=== PATIENT | female | born 1970 | race Hispanic/Latino ===

== ENCOUNTER → 2018-01-05 | Day surgery (SDC) | payer BC ==
[~2018-01-05] MED LIST: ALLEGRA ALLERGY60 MG PO; CLARITIN10 M3 PO; FENTANYL CITRATE/PF 100MCG/2 ML INJ ONE; HAIR VITAMIN1 EACH PO; HYOSCYAMINE SULFATE 0.5 MG/ML INJ ONE; LANSOPRAZOLE; MACRODANTIN; MIDAZOLAM HCL 2 MG/2 ML VIAL ONE; OMEPRAZOLE40 MG PO; PRILOSEC; PROPOFOL IV EMULSION 10 MG/ML 50 ML VIAL ONE; SIMETHICONE 40 MG/0.6 ML BTL ONE; TOPIRAMATE50 MG PO; Z.1.VITAMIN D2000 UN PO
[2018-01-05 11:36] LABS: WBC,FECAL (FECAL LACTOFERRIN) NEGATIVE (NEGATIVE)
[2018-01-05 14:18] LABS: C DIFFICILE TOXIN A&B AMP PROB NEGATIVE (NEGATIVE)
--- NOTE | 2018-01-05 14:19 | Operative Report ---
DATE OF PROCEDURE: January 05, 2018 REFERRING PHYSICIAN: Dr. Cindy Watson. PROCEDURE PERFORMED: Colonoscopy with biopsies. INDICATIONS FOR COLONOSCOPY: Surveillance colonoscopy, history of colon polyps, lower abdominal pain, intermittent diarrhea. MEDICATION: Patient was done under MAC. Please see anesthesiologist's note. PROCEDURE: With the patient in left lateral decubitus position, a flexible fiberoptic Olympus colonoscope was inserted into the rectum with ease and advanced all the way to the cecum. Mucosa overlying the cecum appeared to be within normal limits. The ileocecal valve was intubated, and the scope was advanced into the terminal ileum. Biopsies were obtained. The scope was then withdrawn back into the colon. It was then withdrawn slowly and mild patchy inflammatory changes were noted throughout the colon. Multiple random biopsies were obtained. Similar findings also were noted in the rectum and biopsies were obtained. The scope was then retroflexed into the distal rectum and hypertrophied anal papillae were noted. The scope was then straightened out and was subsequently withdrawn after securing an adequate stool specimen that was sent for the appropriate stool studies. Patient tolerated the procedure well. IMPRESSION 1. Mild patchy colitis. 2. Proctitis, mild. 3. Hypertrophied anal papillae. PLAN: Follow up histology. Follow up stool studies. Start VSL#3 one p.o. daily and Bentyl 10 mg 1 p.o. t.i.d. Job#: [id number] LPA cc:CINDY WATSON MD
--- OUTSIDE RECORDS SUMMARY | 2018-01-07 10:46 | XMS REPORT | Clinical Summary ---
Author Author [facility] Address Unknown Phone Unavailable Care Team Providers Care Quality Assurance Engineer Name Role Phone Asked, No Pcp PCP Unavailable Allergies Comments Active Allergy Reactions Severity Noted Date COUGHING, SNEEZING Iodine And Iodide Other (See 05/09/2017 Containing Products Comments) Medications End Date Status Medication Sig Dispensed Refills Start Date Active ergocalciferol (VITAMIN Take 50,000 0 D2) 50,000 unit capsule Units by mouth. Active lansoprazole (PREVACID) Take 30 mg by 0 30 MG capsule mouth. Active meloxicam (MOBIC) 7.5 mg 0 tablet 8 Active ranitidine (ZANTAC) 150 0 03/01/201 MG tablet 8 Active olopatadine (PAZEO) 0.7 % Apply 1 drop 2.5 mL 3 drops to eye daily. 8 06/18/2017 Discontinued tobramycin-dexamethasone 1 gtt ou qid 2.5 mL 0 (TOBRADEX) 0.3-0.1 % 1 week, bid 1 8 ophthalmic solution week then stop 06/18/2017 Discontinued olopatadine (PAZEO) 0.7 % Apply 1 drop 2.5 mL 3 drops to eye daily. 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 Last Filed Vital Signs Not on file Plan of Treatment Health Maintenance Due Date Last Done Comments CERVICAL CANCER SCREENING 05/23/1991 INFLUENZA VACCINE 09/05/2017 HEPATITIS B VACCINES Aged Out No longer eligible based on patient's age to complete this topic IPV VACCINES Aged Out No longer eligible based on patient's age to complete this topic MENINGOCOCCAL VACCINE Aged Out No longer eligible based on patient's age to complete this topic Results Not on fileafter 01/06/2017 Insurance Payer Benefit Subscriber ID Type Phone Address Plan / Group BCBS BCBS xxxxxxxxxxxx PPO CHOICE PPO/L[place]IS REGALADO PPO Advance Directives Patient has advance care planning documents on file. For more information, kendell zhao contact: Chago Botello [address] [place] [address]
--- OUTSIDE RECORDS SUMMARY | 2018-01-07 10:46 | XMS REPORT | Clinical Summary ---
Author Author [facility] Address Unknown Phone Unavailable Care Team Providers Care Security Attendant Name Role Phone Cindy Newman PCP Allergies Comments Active Allergy Reactions Severity Noted Date COUGHING, SNEEZING Iodine And Iodide Other (See 05/09/2017 Containing Products Comments) Medications End Date Status Medication Sig Dispensed Refills Start Date Active lansoprazole (PREVACID) Take 30 mg by 0 30 MG capsule mouth daily. Active ergocalciferol (VITAMIN Take 50,000 0 D2) 50,000 unit capsule Units by mouth once a week. Active Problems Not on file Encounters Care Team Description Date Type Specialty Haris Pederson MD MOTILITY 05/09/2017 Surgery Gastroenterology Haris Pederson MD 05/09/2017 Hospital Gastroenterology Encounter after 01/06/2017 Social History Date Tobacco Use Types Packs/Day Years Used Never Assessed Sex Assigned at Date Recorded Not on file Industry Job Start Date Occupation Not on file Not on file Not on file Travel End Travel History Travel Start No recent travel history available. Last Filed Vital Signs Time Taken Vital Sign Reading 05/09/2017 2:11 PM CDT Blood Pressure 118/61 05/09/2017 2:11 PM CDT Pulse 77 05/09/2017 2:11 PM CDT Temperature 36.3 C (97.3 F) 05/09/2017 2:11 PM CDT Respiratory Rate 18 05/09/2017 2:11 PM CDT Oxygen Saturation 100% - Inhaled Oxygen - Concentration 05/09/2017 2:11 PM CDT Weight 69.9 kg (154 lb) 05/09/2017 2:11 PM CDT Height 167.6 cm (5' 6") 05/09/2017 2:11 PM CDT Body Mass Index 24.86 Plan of Treatment Not on file Procedures Comments Procedure Name Priority Date/Time Associated Diagnosis MOTILITY 05/09/2017 Dyspepsia 2:00 PM CDT Dysphagia, unspecified type Chest pain, unspecified type Heartburn Gastroesophageal reflux disease, esophagitis presence not specified Special Needs (PATIENT TO DISCONTINU E ACID SUPPRESION , DR. PONCE TO READ) after 01/06/2017 Results Not on fileafter 01/06/2017 Insurance Payer Benefit Subscriber ID Type Phone Address Plan / Group BLUE CROSS/BLUE SHIELD BCBS OS xxxxxxxxxxxx PPO [phone] [address] POS/PPO/EP [place] [id number] O
== END | disposition home or self-care (01) ==
LOC: OR 07:31
PROVIDERS: ATTEND Internal Medicine Gastroenterology
DX: K52.9 Noninfective gastroenteritis and colitis, unspecified (principal); K62.89 Other specified diseases of anus and rectum; K21.9 Gastro-esophageal reflux disease without esophagitis; K25.9 Gastric ulcer, unspecified as acute or chronic, without hemorrhage or perforation; Z91.041 Radiographic dye allergy status
CPT/HCPCS: 45380; 81025; 83630; 83993; 87045; 87177; 87328; 87493; J1980; J2250; 45378

== ENCOUNTER → 2018-09-20 | Outpatient (CLI) | payer BC ==
[~2018-09-20] MED LIST changes: +DEXILANT60 MG PO; +EXCEDRIN TENSION; -FENTANYL CITRATE/PF 100MCG/2 ML INJ ONE; -HYOSCYAMINE SULFATE 0.5 MG/ML INJ ONE; -MIDAZOLAM HCL 2 MG/2 ML VIAL ONE; -PROPOFOL IV EMULSION 10 MG/ML 50 ML VIAL ONE; -SIMETHICONE 40 MG/0.6 ML BTL ONE; +zantac PO
--- NOTE | 2018-09-20 16:38 | Diagnostic Imaging Report ---
Hepatobiliary Scan with Gallbladder Ejection Fraction Clinical information: Chronic upper abdominal pain Technique: Following intravenous administration of 6.6 millicuries of Tc-99m mebrofenin, dynamic images of the abdomen in the anterior projection were obtained through 60 minutes. Sincalide (CCK analog) 1.5 micrograms was administered intravenously over 30 minutes with additional imaging for determination of gallbladder ejection fraction. Discussion: Perfusion of the liver is normal. Extraction of tracer by the liver parenchyma is normal. Tracer appears promptly within the biliary tract. The gallbladder begins to fill by 9 minutes post injection of tracer and fills adequately. Tracer is seen in the small bowel by 16 minutes. The gallbladder ejection fraction with sincalide is 29% (normal greater than 40%). Impression: 1. Filling of the gallbladder excludes acute cystic duct obstruction/acute cholecystitis. 2. The decreased gallbladder ejection fraction of 29% supports the clinical diagnosis of chronic cholecystitis/gallbladder dyskinesia. Signed by: Dr. Alecia Farah M.D. on 09/20/2018 4:34 PM
== END ==
LOC: NM 07:44
PROVIDERS: ATTEND Internal Medicine Gastroenterology
DX: R10.10 Upper abdominal pain, unspecified (principal)
CPT/HCPCS: 78227; 81025; A9537

== ENCOUNTER → 2018-10-15 | Day surgery (SDC) | payer BC ==
[~2018-10-15] MED LIST changes: +DONNATAL/LIDOCAINE/MAALOX 30 ML SUSP PO ONE; +FENTANYL CITRATE/PF 100MCG/2 ML INJ ONE; +MIDAZOLAM HCL 2 MG/2 ML VIAL ONE; +ONDANSETRON HCL INJ 2MG/ML 2ML 2 MG/ML VIAL ONE; +PROPOFOL IV EMULSION 10 MG/ML 50 ML VIAL ONE
--- OUTSIDE RECORDS SUMMARY | 2018-10-15 13:26 | XMS REPORT | Clinical Summary ---
Author Author [facility] Address Unknown Phone Unavailable Care Team Providers Care General Farm Manager Name Role Phone Cindy Newman PCP Allergies [...] a week. Active Problems Not on file Social History Date Tobacco Use Types Packs/Day Years Used Never Assessed Sex Assigned at Date Recorded Not on file Industry Job Start Date Occupation Not on file Not on file Not on file Travel End Travel History Travel Start No recent travel history available. Last Filed Vital Signs Not on file Plan of Treatment Not on file Results Not on fileafter 10/14/2017 Insurance Payer Benefit Subscriber ID Type Phone Address Plan / Group BLUE CROSS/BLUE SHIELD BCBS OS xxxxxxxxxxxx PPO [phone] [address] POS/PPO/[place] [address] O
--- OUTSIDE RECORDS SUMMARY | 2018-10-15 13:26 | XMS REPORT ---
Author Author [facility] Address Unknown Phone Unavailable Care Team Providers Care Cancer Program Consultant Name Role Phone MIGUEL MORTON Unavailable Unavailable Problems This patient has no known problems. Allergies, Adverse Reactions, Alerts This patient has no known allergies or adverse reactions. Medications This patient has no known medications. Results Test Description Test Time Test Comments Text Results Atomic Results Result Comments HEPTOBILIARY W PHARM 2018-09-20 16:33:00 [place] [address] Patient Name: DENNIS SMITH MR #: [id number] : 1970 Age/Sex: 48/F Req #: [id number] Adm Physician: Ordered by: MIGUEL MORTON MD Report #: [id number] Location: [place] Room/Bed: Procedure: [id number] NM/HEPTOBILIARY W PHARM Exam Date: 09/20/18 Exam Time: 0910 REPORT STATUS: Signed Hepatobiliary Scan with Gallbladder Ejection Fraction Clinical information: Chronic upper abdominal pain Technique: Following intravenous administration of 6.6 millicuries of Tc-99m mebrofenin, dynamic images of the abdomen in the anterior projection were obtained through 60 minutes. Sincalide (CCK analog) 1.5 micrograms was administered intravenously over 30 minutes with additional imaging for determination of gallbladder ejection fraction. Discussion: Perfusion of the liver is normal. Extraction of tracer by the liver parenchyma is normal. Tracer appears promptly within the biliary tract. The gallbladder begins to fill by 9 minutes post injection of tracer and fills adequately. Tracer is seen in the small bowel by 16 minutes. The gallbladder ejection fraction with sincalide is 29% (normal greater than 40%). Impression: 1. Filling of the gallbladder excludes acute cystic duct obstruction/acute cholecystitis. 2. The decreased gallbladder ejection fraction of 29% supports the clinical diag nosis of chronic cholecystitis/gallbladder dyskinesia. Signed by: Dr. Debbie Ivy M.D. on 09/20/2018 4:34 PM Dictated By: DEBBIE IVY MD [id number] Transcribed By: DILLAN on 09/20/18 [id number] COPY TO: MIGUEL MORTON MD
--- OUTSIDE RECORDS SUMMARY | 2018-10-15 13:26 | XMS REPORT | Clinical Summary ---
Author Author [facility] Organization [facility] Address Unknown Phone Unavailable Care Team Providers Care Supervisor Laundry Name Role Phone Asked, No Pcp PCP [...] mL 3 drops to eye daily. 8 05/23/2018 Discontinued (Reorder) cycloSPORINE (RESTASIS) Administer 1 180 each 0 0.05 % ophthalmic drop to both 9 emulsion eyes 2 (two) times a day for 90 days. 07/05/2018 Discontinued (Reorder) lifitegrast (XIIDRA) 5 % Apply 1 drop 60 each 3 dropperette to eye 2 9 (two) times a day for 90 days. 07/05/2018 Discontinued (Alternate therapy) cycloSPORINE (RESTASIS) Administer 1 180 each 3 0.05 % ophthalmic drop to both 9 emulsion eyes 2 (two) times a day for 90 days. 10/03/2018 lifitegrast (XIIDRA) 5 % Apply 1 drop 60 each 3 dropperette to eye 2 9 (two) times a day for 90 days. Status Hospital, Clinic, or Ordered Dose Route Frequency Start End Date Other Facility Date Administered Medication Ended onabotulinumtoxinA 40 Units inj once 08/29/19 (BOTOX) injection 40 19 9 UnitsIndications: Benign essential blepharospasm Ended onabotulinumtoxinA 10 Units inj once 09/03/19 (BOTOX) injection 10 19 9 UnitsIndications: Benign essential blepharospasm Active Problems Not on file Encounters Care Team Description Date Type Specialty Aminta Samayoa MD Benign essential blepharospasm (Primary Dx) 09/02/2018 Office Visit Ophthalmology Aminta Samayoa MD Benign essential blepharospasm (Primary Dx); Dry eye syndrome, bilateral; 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 08/28/2018 Office Visit Ophthalmology Aminta Samayoa MD 08/28/2018 Telephone Ophthalmology Aminta Samayoa MD 08/28/2018 Telephone Ophthalmology Aminta Samayoa MD 08/27/2018 Telephone Ophthalmology Aminta Samayoa MD 08/13/2018 Telephone Ophthalmology Aminta Samayoa MD Dry eye syndrome, bilateral (Primary Dx) 07/05/2018 Office Visit Ophthalmology Aminta Samayoa MD 07/05/2018 Refill Ophthalmology Aminta Samayoa MD 06/28/2018 Telephone Ophthalmology Aminta Samayoa MD 2018 Telephone Ophthalmology Aminta Samayoa MD 05/15/2018 Refill Ophthalmology Aminta Samayoa MD Benign essential blepharospasm (Primary Dx); Epiphora, bilateral; Dry eye syndrome, bilateral 05/10/2018 Office Visit Ophthalmology after 10/14/2017 Social History Date Tobacco Use Types Packs/Day Years Used Never Smoker Smokeless Tobacco: Never Used Drinks/Week oz/Week Comments Alcohol Use No Sex Assigned at Date Recorded Not on file Industry Job Start Date Occupation Not on file Not on file Not on file Travel End Travel History Travel Start No recent travel history available. Last Filed Vital Signs Not on file Plan of Treatment Health Maintenance Due Date Last Done Comments CERVICAL CANCER SCREENING 05/23/1991 INFLUENZA VACCINE 09/05/2018 Results Not on fileafter 10/14/2017 Insurance Type Payer Benefit Subscriber ID Effective Phone Address Plan / Dates Group PPO BCBS BCBS xxxxxxxxxxxx 2015-P JOSELINE negrete PPO/LOUIS SCHMIDT Advance Directives For more information, please contact: [phone] Patient Senior Devops Engineer Explanation Type Date Recorded Advance Directives, Living Will and Medical Power of Sheet Rock Taper
[2018-10-15 15:10] VITALS: BP 117/65
--- NOTE | 2018-10-15 17:01 | Operative Report ---
DATE OF PROCEDURE: 10/15/2018 SURGEON: Chavez Roy MD PROCEDURES: EGD with esophageal dilatation and biopsies. INDICATIONS FOR PROCEDURE: Dysphagia, upper abdominal pain. MEDICATIONS: The patient was done under MAC, please see anesthesiologist's note. PROCEDURE IN DETAIL: With the patient in left lateral decubitus position, a flexible fiberoptic Olympus gastroscope was introduced into the esophagus under direct visualization without any difficulty. There was some patchy erythema noted in distal esophagus. Mild stricture was noted at the GE junction that was dilated to size 54-[place] Flowers. The scope was then advanced with ease into the stomach. Mucosa overlying the antrum and the body revealed some patchy intense erythema and low-grade to moderate edema, and biopsies were obtained and sent to stain for H. pylori. Numerous gastric polyps were noted. They were hyperplastic-appearing, primarily in the body and minimally in the fundus, approximately 20 were removed per cold snare polypectomy. The pylorus was of normal contour and shape, it was intubated with ease and the scope was advanced all the way to the second portion of the duodenum. The scope was then withdrawn slowly. Mucosa overlying the proximal, second portion and duodenal bulb grossly was unremarkable. Biopsies were obtained to rule out sprue. The scope was then withdrawn back into the stomach and retroflexed, mucosa overlying the fundus and the cardia appeared to be within normal limits. The scope was then straightened out, it was subsequently withdrawn, and the patient tolerated the procedure well. IMPRESSION: 1. Distal esophagitis. 2. Esophageal stricture at GE junction dilated to size 54-Cro[place] Flowers. 3. Gastritis, biopsied, biopsies sent to stain for Helicobacter pylori. 4. Gastric polyps, numerous, hyperplastic-appearing, approximately 20 removed per cold snare polypectomy. 5. Rule out sprue. PLAN: Follow up histology. Increase Dexilant 60 mg one p.o. before meals b.i.d. If the patient's symptom persists, then considering her low ejection fraction on her HIDA scan, we will send her for a surgical opinion. Chavez Roy MD [facility] [place][id number] cc: Cindy Newman
== END | disposition home or self-care (01) ==
LOC: OR 13:24
PROVIDERS: ATTEND Internal Medicine Gastroenterology
DX: K29.60 Other gastritis without bleeding (principal); K31.7 Polyp of stomach and duodenum; K22.2 Esophageal obstruction; K20.8 Other esophagitis; K59.00 Constipation, unspecified; Z86.010 Personal history of colon polyps; K81.9 Cholecystitis, unspecified
CPT/HCPCS: 43239; 43251; 43450; 81025; J2250; J2405; J2704; J3010

== ENCOUNTER → 2018-10-18 | Day surgery (SDC) | payer BC ==
[2018-10-17 14:24] LABS: BILIRUBIN,URINE NEGATIVE (NEGATIVE); CLARITY,URINE SL CLOUDY (CLEAR); COLOR,URINE YELLOW (YELLOW); KETONES,URINE NEGATIVE (NEGATIVE); LEUKOCYTE ESTERASE ,URINE SMALL (NEGATIVE); NITRITE,URINE NEGATIVE (NEGATIVE); PROTEIN,URINE DIPSTICK NEGATIVE (NEGATIVE); URINE UROBILINOGEN 0.2 mg/dL (0.2 - 1)
[2018-10-17 14:25] LABS: BASOPHILS % 0.8 % (0.0-1.0); EOSINOPHILS # (AUTO) 0.4 (0.0-0.4); EOSINOPHILS % 8.6 % (0.0-6.0); HEMATOCRIT 34.2 % (34.2-44.1); HEMOGLOBIN 10.7 g/dL (12.0-16.0); LYMPHOCYTES # (AUTO) 1.5 (1.0-3.2); LYMPHOCYTES % 30.5 % (18.0-39.1); MEAN CORPUSCULAR HEMOGLOBIN 27.9 pg (28-32); MEAN CORPUSCULAR HGB CONC 31.3 g/dL (31-35); MEAN CORPUSCULAR VOLUME 89.3 fL (81-99); MONOCYTES # (AUTO) 0.5 (0.2-0.8); MONOCYTES % 9.2 % (4.4-11.3); NEUTROPHILS # (AUTO) 2.5 (2.1-6.9); NEUTROPHILS % 50.5 % (38.7-80.0); PLATELET COUNT 295 x10e3/uL (140-360); RED BLOOD COUNT 3.83 x10e6/uL (3.6-5.1); RED CELL DISTRIBUTION WIDTH 15.1 % (11.7-14.4)
[2018-10-17 14:45] LABS: ALANINE AMINOTRANSFERASE 8 IU/L (0-55); ALBUMIN 3.6 g/dL (3.5-5.0); ALBUMIN/GLOBULIN RATIO 1.2 (0.8-2.0); ALKALINE PHOSPHATASE 51 IU/L (40-150); ANION GAP 10.7 mmol/L (8-16); BLOOD UREA NITROGEN 6 mg/dL (7-26); BUN/CREATININE RATIO 8 (6-25); CALCIUM 8.8 mg/dL (8.4-10.2); CARBON DIOXIDE 24 mmol/L (22-29); CHLORIDE 107 mmol/L (98-107); CREATININE, SERUM 0.77 mg/dL (0.57-1.11); EST GLOMERULAR FILTRATION RATE > 60 ML/MIN (60-); GLUCOSE 99 mg/dL (74-118); POTASSIUM 3.7 mmol/L (3.5-5.1); SODIUM 138 mmol/L (136-145)
[~2018-10-18] MED LIST changes: +BUPIVACAINE 0.25%/EPI 30ML SDV INJ ONE; +DEXAMETHASONE SOD PHOS INJ 4 MG/ML VIAL ONE; -DONNATAL/LIDOCAINE/MAALOX 30 ML SUSP PO ONE; +KETOROLAC TROMETHAMINE 30 MG/ML VIAL ONE; +LIDOCAINE HCL 2% LOCAL INJ 5 ML SDV VIAL INJ ONE; +PROPOFOL IV EMULSION 10 MG/ML 20 ML VIAL ONE; -PROPOFOL IV EMULSION 10 MG/ML 50 ML VIAL ONE; +ROCURONIUM BROMIDE 10 MG/ML 5ML VIAL ONE; +SEVOFLURANE INHAL SOLN 250 ML PEN BTL ONE
--- OUTSIDE RECORDS SUMMARY | 2018-10-18 07:35 | XMS REPORT | Clinical Summary ---
Author Author [facility] Address Unknown Phone Unavailable Care Team Providers Care Parakeet Raiser Name Role Phone Asked, No Pcp PCP [...] syndrome, bilateral 05/10/2018 Office Visit Ophthalmology after 10/17/2017 Social History Date Tobacco Use Types Packs/Day [...] INFLUENZA VACCINE 09/05/2018 Results Not on fileafter 10/17/2017 Insurance Type Payer Benefit Subscriber ID Effective Phone Address Plan / Dates Group PPO BCBS BCBS xxxxxxxxxxxx 2015-P JOSELINE negrete PPO/LOUIS SCHMIDT Advance Directives For more information, please contact: [phone] Patient Complaint Evaluation Supervisor Explanation Type Date Recorded Advance Directives, Living Will and Medical Power of Diesel Fitter Mechanic
--- OUTSIDE RECORDS SUMMARY | 2018-10-18 07:35 | XMS REPORT | Clinical Summary ---
Author Author [facility] Address Unknown Phone Unavailable Care Team Providers Care Clinical Services Manager Name Role Phone Cindy Newman PCP [...] Not on file Results Not on fileafter 10/17/2017 Insurance Payer Benefit Subscriber ID Type Phone Address Plan / Group BLUE CROSS/BLUE SHIELD BCBS OS xxxxxxxxxxxx PPO [phone] [address] POS/PPO/[place] [address] O
--- NOTE | 2018-10-18 12:37 | Operative Report ---
DATE OF PROCEDURE: 10/18/2018 SURGEON: Mono Graff MD PREOPERATIVE DIAGNOSIS: Cholecystitis and cholelithiasis. POSTOPERATIVE DIAGNOSIS: Cholecystitis and cholelithiasis. OPERATION PERFORMED: Laparoscopic cholecystectomy. ANESTHESIA: General. COMPLICATIONS: None. ESTIMATED BLOOD LOSS: Minimal. DESCRIPTION OF PROCEDURE: With the patient lying in bed in the supine position, under good general endotracheal anesthesia, the abdomen was prepped with Betadine solution and draped in the usual manner. A Veress needle was introduced into the umbilicus and pneumoperitoneum was established without any difficulty. An 11 mm trocar was placed into the umbilicus and a 10 mm video laparoscope was placed into the intraabdominal cavity. Under direct vision, three 5 mm trocars were placed in the right subcostal region. Video laparoscopy was then again carried out. The only positive findings were to the gallbladder that had adhesions in its lower half with the stomach and duodenum stuck to the lower part of the gallbladder. The rest of the abdominal exploration was otherwise, within normal limits. The adhesions to the gallbladder were then slowly and carefully taken down. The peritoneum overlying the neck of the gallbladder was then opened up and the cystic duct was identified. The cystic duct was followed to its junction with the common duct. The cystic duct was then circumferentially dissected away from the common duct, doubly clipped and divided. The cystic artery was similarly doubly clipped and divided. The gallbladder was then slowly and carefully taken off the liver bed using the cautery scissors and perfect hemostasis was ascertained. The gallbladder was then grasped through the umbilical port and removed without any difficulty. Video laparoscopy was then again carried out. The liver bed was found to be perfectly dry all the excess fluid was aspirated. The pneumoperitoneum was evacuated and all the trocars were removed under direct vision. The midline fascia at the umbilicus was then closed with a [id number] of 0 Vicryl. All layers were infiltrated on the way out with solution of 0.25% Marcaine. Subcutaneous tissue was approximated with 3-0 Vicryl and the skin was closed with subcuticular 5-0 Vicryl. Benzoin, Steri-Strips, and Band-Aids were applied. The sponge, lap, and needle counts were correct. The patient tolerated the procedure well and returned to the recovery room in stable condition. MD ORLANDO Bartholomew/CHRISTIAN /[id number]
[2018-10-18 12:55] VITALS: BP 111/61
== END | disposition home or self-care (01) ==
LOC: OR 07:30
PROVIDERS: ATTEND Surgery
DX: K80.10 Calculus of gallbladder with chronic cholecystitis without obstruction (principal); K82.8 Other specified diseases of gallbladder; K21.9 Gastro-esophageal reflux disease without esophagitis; F41.9 Anxiety disorder, unspecified; Z91.041 Radiographic dye allergy status; Z01.810 Encounter for preprocedural cardiovascular examination; Z01.812 Encounter for preprocedural laboratory examination
CPT/HCPCS: 36415; 47562; 80053; 81003; 81025; 85025; 88304; 93005; C1766; J1100; J1885; J2001; J2250; J2405; J2704; J3010

== ENCOUNTER 2018-12-21 14:40 | Emergency (ER) | payer BC ==
[~2018-12-21] VITALS: Ht 170.2 cm; Wt 70.3 kg
[~2018-12-21 14:40] MED LIST changes: -BUPIVACAINE 0.25%/EPI 30ML SDV INJ ONE; -DEXAMETHASONE SOD PHOS INJ 4 MG/ML VIAL ONE; -FENTANYL CITRATE/PF 100MCG/2 ML INJ ONE; -KETOROLAC TROMETHAMINE 30 MG/ML VIAL ONE; -LIDOCAINE HCL 2% LOCAL INJ 5 ML SDV VIAL INJ ONE; -MIDAZOLAM HCL 2 MG/2 ML VIAL ONE; -ONDANSETRON HCL INJ 2MG/ML 2ML 2 MG/ML VIAL ONE; -PROPOFOL IV EMULSION 10 MG/ML 20 ML VIAL ONE; -ROCURONIUM BROMIDE 10 MG/ML 5ML VIAL ONE; -SEVOFLURANE INHAL SOLN 250 ML PEN BTL ONE
[2018-12-21] MEDS ORDERED: ONDANSETRON HCL INJ 2MG/ML 2ML 2 MG/ML VIAL IV NR (14:45)
[2018-12-21] MEDS ORDERED: PANTOPRAZOLE 40 MG 10ML VIAL IV NR (14:45)
[2018-12-21] MEDS ORDERED: SODIUM CHLORIDE 0.9% 1000ML 1,000 ML IV STA (14:45)
[2018-12-21] MEDS ORDERED: MORPHINE SULFATE INJ 4 MG/ML INJ 1ML IV NR (15:00)
[2018-12-21 15:25] LABS: BILIRUBIN,URINE NEGATIVE (NEGATIVE); CLARITY,URINE CLEAR (CLEAR); COLOR,URINE YELLOW (YELLOW); KETONES,URINE NEGATIVE (NEGATIVE); LEUKOCYTE ESTERASE ,URINE MODERATE (NEGATIVE); NITRITE,URINE NEGATIVE (NEGATIVE); PROTEIN,URINE DIPSTICK NEGATIVE (NEGATIVE); URINE UROBILINOGEN 0.2 mg/dL (0.2 - 1)
[2018-12-21 15:31] LABS: ALANINE AMINOTRANSFERASE 9 IU/L (0-55); ALBUMIN 3.6 g/dL (3.5-5.0); ALKALINE PHOSPHATASE 60 IU/L (40-150); ANION GAP 12.3 mmol/L (8-16); BASOPHILS # (AUTO) 0.1 (0.0-0.1); BASOPHILS % 1.1 % (0.0-1.0); BLOOD UREA NITROGEN 10 mg/dL (7-26); BUN/CREATININE RATIO 12 (6-25); CALCIUM 8.9 mg/dL (8.4-10.2); CARBON DIOXIDE 22 mmol/L (22-29); CHLORIDE 107 mmol/L (98-107); CREATININE, SERUM 0.81 mg/dL (0.57-1.11); EOSINOPHILS # (AUTO) 0.5 (0.0-0.4); EOSINOPHILS % 8.6 % (0.0-6.0); EST GLOMERULAR FILTRATION RATE > 60 ML/MIN (60-); GLUCOSE 164 mg/dL (74-118); HEMOGLOBIN 11.8 g/dL (12.0-16.0); LIPASE 25 U/L (8-78); LYMPHOCYTES # (AUTO) 1.6 (1.0-3.2); LYMPHOCYTES % 28.8 % (18.0-39.1); MEAN CORPUSCULAR HEMOGLOBIN 28.6 pg (28-32); MEAN CORPUSCULAR HGB CONC 31.9 g/dL (31-35); MEAN CORPUSCULAR VOLUME 89.8 fL (81-99); MONOCYTES # (AUTO) 0.4 (0.2-0.8); NEUTROPHILS % 54.3 % (38.7-80.0); PLATELET COUNT 296 x10e3/uL (140-360); POTASSIUM 3.3 mmol/L (3.5-5.1); RED BLOOD COUNT 4.12 x10e6/uL (3.6-5.1); RED CELL DISTRIBUTION WIDTH 15.1 % (11.7-14.4); SODIUM 138 mmol/L (136-145)
[2018-12-21 15:42] LABS: BACTERIA,URINE MODERATE /HPF; EPITHELIAL CELLS,URINE FEW /LPF; RBC,URINE 0-5 /HPF (0-5)
[2018-12-21 15:53] LABS: PREGNANCY TEST, URINE NEGATIVE (NEGATIVE)
[2018-12-21] MEDS ORDERED: KETOROLAC TROMETHAMINE 30 MG/ML VIAL IV NR (16:14)
--- NOTE | 2018-12-21 16:43 | NUR ---
meds given per ' orders and pt has tolerated well.
--- NOTE | 2018-12-21 17:53 | Diagnostic Imaging Report ---
EXAM: CT Abdomen and Pelvis WITHOUT contrast INDICATION: Abdominal pain, nausea, and diarrhea. COMPARISON: 03/27/2016. TECHNIQUE: Abdomen and pelvis were scanned utilizing a multidetector helical scanner from the lung base to the pubic symphysis without administration of IV contrast. Absence of intravenous contrast decreases sensitivity for detection of focal lesions and vascular pathology. Coronal and sagittal reformations were obtained. Routine protocol was performed. IV CONTRAST: None. ORAL CONTRAST: Gastrografin water mixture. RADIATION DOSE: Total DLP: 339.70 mGy*cm Estimated effective dose: (DLP x 0.015 x size factor) mSv COMPLICATIONS: None FINDINGS: LINES and TUBES: None. LOWER THORAX: Unremarkable HEPATOBILIARY: No focal hepatic lesions. No biliary ductal dilation. GALLBLADDER: There are cholecystectomy clips. No wall thickening. SPLEEN: No splenomegaly. PANCREAS: No focal masses or ductal dilatation. ADRENALS: No adrenal nodules KIDNEYS/URETERS: No hydronephrosis. No cystic or solid mass lesions. No stones. GI TRACT: No abnormal distention, wall thickening, or evidence of bowel obstruction. Appendix is normal. PELVIC ORGANS/BLADDER: The uterus is retroverted. LYMPH NODES: No lymphadenopathy. VESSELS: Unremarkable. PERITONEUM / RETROPERITONEUM: No free air or fluid. BONES: Disc space narrowing at L4-L5 with partial fusion may be in part developmental in etiology. Narrowing of the right neural foramen at this level. SOFT TISSUES: Unremarkable. IMPRESSION: 1. No acute abdominopelvic abnormality. Signed by: Dr. Danielle White M.D. on 12/21/2018 5:49 PM
== END 2018-12-21 18:34 | disposition home or self-care (01) ==
LOC: ER 14:40
DX: R10.11 Right upper quadrant pain (principal); R11.0 Nausea; K21.9 Gastro-esophageal reflux disease without esophagitis
CPT/HCPCS: 36415; 74176; 80053; 81001; 81025; 83690; 84702; 85025; 87086; 99284; C9113; J1885; J2405; J7030

== ENCOUNTER → 2019-07-16 | Outpatient (CLI) | payer BC ==
[~2019-07-16] MED LIST changes: +GADOBENATE DIMEGLUMINE 1 ML IV ONE; +SODIUM CHLORIDE 0.9% 50ML 50 ML ONE
--- NOTE | 2019-07-16 15:10 | Diagnostic Imaging Report ---
TECHNIQUE: MRI of the abdomen WITHOUT and WITH intravenous contrast. INDICATION: 49-year-old woman with right upper quadrant pain and liver disease. COMPARISON: Abdomen and pelvis CT 12/21/2018. FINDINGS: LOWER THORAX: Unremarkable. LIVER: No hepatic signal abnormality. Scattered hepatic cysts, the largest measures 0.8 x 1.2 cm and contains nonenhancing thin internal septation. BILIARY: Prior cholecystectomy. No biliary ductal dilatation or filling defect. SPLEEN: No splenomegaly. PANCREAS: No focal masses or ductal dilatation. ADRENALS: No adrenal nodules. KIDNEYS/URETERS: No hydronephrosis or solid mass lesions. PERITONEUM/RETROPERITONEUM: No free fluid. LYMPH NODES: No lymphadenopathy. VESSELS: Unremarkable. GI TRACT: No distention or wall thickening. BONES AND SOFT TISSUES: Unremarkable. IMPRESSION: No acute or suspicious abnormalities in the abdomen or pelvis. Benign hepatic cysts. Prior cholecystectomy. Signed by: Petra Ely MD on 07/16/2019 3:06 PM
== END ==
LOC: MRI 12:53
PROVIDERS: ATTEND Internal Medicine Gastroenterology
DX: K76.9 Liver disease, unspecified (principal); R10.11 Right upper quadrant pain
CPT/HCPCS: 74183

== ENCOUNTER 2019-08-22 00:51 | Emergency (ER) | payer BC ==
[~2019-08-22] VITALS: Ht 170.2 cm; Wt 70.3 kg
[~2019-08-22 00:51] MED LIST changes: -GADOBENATE DIMEGLUMINE 1 ML IV ONE; -SODIUM CHLORIDE 0.9% 50ML 50 ML ONE
[2019-08-22] MEDS ORDERED: ONDANSETRON HCL INJ 2MG/ML 2ML 2 MG/ML VIAL IV STA (01:03)
[2019-08-22] MEDS ORDERED: SODIUM CHLORIDE 0.9% 1000ML 1,000 ML IV STA (01:03)
[2019-08-22] MEDS ORDERED: MORPHINE SULFATE INJ 4 MG/ML INJ 1ML IV STA (01:03)
--- NOTE | 2019-08-22 01:05 | Emergency Department Note ---
History of Present Illnes History of Present Illness Chief Complaint: Abdominal Complaints History of Present Illness This is a 49 year old female . Arrival Mode: Car Onset (how long ago): day(s) Radiation: Reports non-radiation Severity: moderate Onset quality: gradual Duration (how long): day(s) Timing of current episode: constant Progression: unchanged Chronicity: new Associated symptoms: Reports nausea/vomiting Treatments prior to arrival: none Past Medical/Family History Physician Review I have reviewed the patient's past medical and family history. Any updates have been documented here. Past Medical History Recent Fever: No Clinical Suspicion of Infectio: No New/Unexplained Change in Ment: No Past Medical History: GERD Past Surgical History: Cholecysctectomy Other Surgery: RT OVARIAN CYST Social History Smoking Cessation: Never Smoker Alcohol Use: None Any Illegal Drug Use: No Review of Systems Review of Systems Constitutional: Reports no symptoms EENTM: Reports no symptoms Cardiovascular: Reports no symptoms Respiratory: Reports no symptoms Gastrointestinal: Reports abdominal pain Genitourinary: Reports no symptoms Musculoskeletal: Reports no symptoms Integumentary: Reports no symptoms Neurological: Reports no symptoms Psychological: Reports no symptoms Endocrine: Reports no symptoms Hematological/Lymphatic: Reports no symptoms Physical Exam Related Data Allergies: Coded Allergies: iodine (Verified Allergy, Mild, IV IODINE-SNEEZING/COUGHING, 03/23/16) Triage Vital Signs Vital Signs Date Time Temp Pulse Resp B/P (MAP) Pulse Ox O2 Delivery O2 Flow Rate FiO2 08/22/19 01:00 98.0 97 17 142/97 100 Room Air Vital signs reviewed: Yes Physical Exam CONSTITUTIONAL Constitutional: Present well-developed, Present well-nourished HENT HENT: Present normocephalic, Present atraumatic, Present oropharynx clear/moist, Present nose normal HENT L/R: Present left ext ear normal, Present right ext ear normal EYES Eyes: Reports PERRL, Reports conjunctivae normal NECK Neck: Present ROM normal PULMONARY Pulmonary: Present effort normal, Present breath sounds normal CARDIOVASCULAR Cardiovascular: Present regular rhythm, Present heart sounds normal, Present capillary refill normal, Present normal rate GASTROINTESTINAL Abdominal: Present soft, Present tender GENITOURINARY Genitourinary: Present exam deferred SKIN Skin: Present warm, Present dry MUSCULOSKELETAL Musculoskeletal: Present ROM normal NEUROLOGICAL Neurological: Present alert, Present oriented x 3, Present no gross motor or sensory deficits PSYCHOLOGICAL Psychological: Present mood/affect normal, Present judgement normal Results Laboratory Lab results reviewed: Yes Laboratory comments Laboratory Tests Test 08/22/19 01:15 Urine Color Yellow (YELLOW) Urine Clarity Turbid (CLEAR) Urine pH 6 (5 - 7) Urine Specific [place] 1.020 (1.010-1.025) Urine Protein 1+ (NEGATIVE) Urine Glucose (UA) Negative (NEGATIVE) Urine Ketones 1+ (NEGATIVE) Urine Blood Large (NEGATIVE) Urine Nitrite Positive (NEGATIVE) Urine Bilirubin Negative (NEGATIVE) Urine Urobilinogen 0.2 mg/dL (0.2 - 1) Urine Leukocyte Esterase Large (NEGATIVE) Urine RBC 21-50 /HPF (0-5) Urine WBC >50 /HPF (0-5) Urine Epithelial Cells Few /LPF (NONE) Urine Bacteria Many /HPF (NONE) Urine Test Negative (NEGATIVE) Imaging Imaging results reviewed: Yes Impressions [place] [id number] Patient Name: DENNIS SMITH MR #: [id number] : 1970 Age/Sex: 49/F Req #: [id number] Adm Physician: Ordered by: SILVA CHEEMA DO Report #: [id number] Location: ER Room/Bed: Procedure: [id number] CT/CT ABDOMEN/PELVIS WO Exam Date: Exam Time: REPORT STATUS: Signed EXAMINATION: CT of the abdomen and pelvis without contrast. TECHNIQUE: Spiral CT images of the abdomen and pelvis were performed from the lung bases to the lesser trochanters. No intravenous contrast was given per physician's request. Coronal and sagittal reformatted images were obtained. COMPARISON: MRI abdomen 07/13/2019, CT abdomen and pelvis without contrast 12/21/2018 CLINICAL HISTORY:Burning with urination for 2 hours, abdominal pain DISCUSSION: ABSENCE OF INTRAVENOUS CONTRAST DECREASES SENSITIVITY FOR DETECTION OF FOCAL LESIONS AND VASCULAR PATHOLOGY. ABDOMEN/PELVIS: LOWER THORAX: Unremarkable. HEPATOBILIARY: No focal hepatic lesions. No intra or extrahepatic biliary ductal dilation. GALLBLADDER: Cholecystectomy clips SPLEEN: No splenomegaly. PANCREAS: No focal masses or ductal dilatation. ADRENALS: No nodules. KIDNEYS/URETERS: No renal or ureteral calculi, hydronephrosis or obstruction. No contour abnormalities or perinephric stranding. PELVIC ORGANS/BLADDER: Bladder is decompressed but grossly unremarkable. Retroflexed uterus. No adnexal masses. PERITONEUM/RETROPERITONEUM: No free air or fluid. LYMPH NODES: No intra-abdominal,retroperitoneal, pelvic or inguinal lymphadenopathy. VESSELS: Unremarkable for noncontrast exam. GI TRACT: No distention or wall thickening. BONES AND SOFT TISSUES: No aggressive lytic or suspicious focal sclerotic lesions. Intervertebral disc space narrowing at L4-L5 with canal stenosis and left neural foraminal stenosis. Stable mild grade 1 anterolisthesis of L4 on L3. Soft tissues are unremarkable. IMPRESSION: 1. No renal, ureteral or bladder calculi, hydronephrosis or obstruction. Unable to assess for pyelonephritis given the lack of intravenous contrast. 2. Unable to assess bladder due to decompressed state. Signed by: Dr. Jordy Noe M.D. on 08/22/2019 2:21 AM Dictated By: JORDY NOE MD 0 Transcribed By: DILLAN on 08/22/19220 COPY TO: SILVA CHEEMA DO~ Assessment & Plan Medical Decision Making MDM 49 yof presents with abdominal pain. CBC, CMP, , UA and CTS ordered to r/o appendicitis, COVID-19 infection diverticulitis, UTI, kidney stone, perforated viscus, obstruction, ischemia, and biliary pathology Assessment & Plan Final Impression: (1) UTI (urinary tract infection) Depart Disposition: HOME, SELF-halfway Meds Reported Medications [zantac] No Conflict Check, 20 MG PO DAILY 10/18/18 Dexlansoprazole (DEXILANT) 60 Mg Cap., MG PO DAILY THERAPEUTIC INTERCHANGE WITH PROTONIX PER [facility] 10/15/18 [Excedrin Tension ] No Conflict Check, PRN 10/14/18 SILVA CHEEMA DO Aug 22, 2019 01:05
[2019-08-22 01:26] LABS: CLARITY,URINE TURBID (CLEAR); COLOR,URINE YELLOW (YELLOW); LEUKOCYTE ESTERASE ,URINE LARGE (NEGATIVE); PROTEIN,URINE DIPSTICK 1+ (NEGATIVE)
[2019-08-22 01:27] LABS: BILIRUBIN,URINE NEGATIVE (NEGATIVE); KETONES,URINE 1+ (NEGATIVE); NITRITE,URINE POSITIVE (NEGATIVE); URINE UROBILINOGEN 0.2 mg/dL (0.2 - 1)
[2019-08-22 01:34] LABS: RBC,URINE 21-50 /HPF (0-5); WBC,URINE (MAN) >50 /HPF (0-5)
[2019-08-22 01:35] LABS: BACTERIA,URINE MANY /HPF; EPITHELIAL CELLS,URINE FEW /LPF
--- NOTE | 2019-08-22 02:24 | Diagnostic Imaging Report ---
EXAMINATION: CT of the abdomen and pelvis without contrast. TECHNIQUE: Spiral CT images of the abdomen and pelvis were performed from the lung bases to the lesser trochanters. No intravenous contrast was given per physician's request. Coronal and sagittal reformatted images were obtained. COMPARISON: MRI abdomen 07/13/2019, CT abdomen and pelvis without contrast 12/21/2018 CLINICAL HISTORY:Burning with urination for 2 hours, abdominal pain DISCUSSION: ABSENCE OF INTRAVENOUS CONTRAST DECREASES SENSITIVITY FOR DETECTION OF FOCAL LESIONS AND VASCULAR PATHOLOGY. ABDOMEN/PELVIS: LOWER THORAX: Unremarkable. HEPATOBILIARY: No focal hepatic lesions. No intra or extrahepatic biliary ductal dilation. GALLBLADDER: Cholecystectomy clips SPLEEN: No splenomegaly. PANCREAS: No focal masses or ductal dilatation. ADRENALS: No nodules. KIDNEYS/URETERS: No renal or ureteral calculi, hydronephrosis or obstruction. No contour abnormalities or perinephric stranding. PELVIC ORGANS/BLADDER: Bladder is decompressed but grossly unremarkable. Retroflexed uterus. No adnexal masses. PERITONEUM/RETROPERITONEUM: No free air or fluid. LYMPH NODES: No intra-abdominal,retroperitoneal, pelvic or inguinal lymphadenopathy. VESSELS: Unremarkable for noncontrast exam. GI TRACT: No distention or wall thickening. BONES AND SOFT TISSUES: No aggressive lytic or suspicious focal sclerotic lesions. Intervertebral disc space narrowing at L4-L5 with canal stenosis and left neural foraminal stenosis. Stable mild grade 1 anterolisthesis of L4 on L3. Soft tissues are unremarkable. IMPRESSION: 1. No renal, ureteral or bladder calculi, hydronephrosis or obstruction. Unable to assess for pyelonephritis given the lack of intravenous contrast. 2. Unable to assess bladder due to decompressed state. Signed by: Dr. Volodymyr Noe M.D. on 08/22/2019 2:21 AM
== END 2019-08-22 03:22 | disposition home or self-care (01) ==
LOC: ER 01:10
DX: N39.0 Urinary tract infection, site not specified (principal); R30.0 Dysuria; K21.9 Gastro-esophageal reflux disease without esophagitis; M35.00 Sjogren syndrome, unspecified
CPT/HCPCS: 74176; 81001; 81025; 99283

== ENCOUNTER → 2020-06-17 | Outpatient (CLI) | payer BC | LOC: MRI 07:30 | PROVIDERS: ATTEND Internal Medicine Gastroenterology | DX: R10.10 Upper abdominal pain, unspecified (principal); Z80.0 Family history of malignant neoplasm of digestive organs | CPT/HCPCS: 74181; 81025 ==

== ENCOUNTER → 2020-07-01 | Outpatient (CLI) | payer BC ==
[~2020-07-01] MED LIST changes: +IOPAMIDOL 370 MG/ML 200 ML INFUS..BTL INJ ONE; +SODIUM CHLORIDE 0.9% 50ML 50 ML ONE
== END ==
LOC: CT 16:51
PROVIDERS: ATTEND Internal Medicine Gastroenterology
DX: D64.9 Anemia, unspecified (principal); Z80.0 Family history of malignant neoplasm of digestive organs; Z80.8 Family history of malignant neoplasm of other organs or systems
CPT/HCPCS: 74177; Q9967

== ENCOUNTER 2021-07-14 05:31 | Emergency (ER) | payer BC ==
[~2021-07-14] VITALS: Ht 170.2 cm; Wt 70.3 kg
[~2021-07-14 05:31] MED LIST changes: -IOPAMIDOL 370 MG/ML 200 ML INFUS..BTL INJ ONE; -SODIUM CHLORIDE 0.9% 50ML 50 ML ONE
[2021-07-14] MEDS ORDERED: PREDNISONE50 MG PO (05:53)
[2021-07-14] MEDS ORDERED: BENADRYL25 M1 PO (05:53)
[2021-07-14] MEDS ORDERED: DEXAMETHASONE SOD PHOS 10 MG/1 ML VIAL IM ONE (06:00)
[2021-07-14] MEDS ORDERED: DEXAMETHASONE SOD PHOS 10 MG/1 ML VIAL ONE (06:04)
[2021-07-26] MEDS ORDERED: NEURONTIN100 MG PO (08:47)
[2021-07-27] MEDS ORDERED: LEVOCETIRIZINE D5 MG PO (10:58)
== END 2021-07-14 06:19 | disposition home or self-care (01) ==
LOC: ER 05:43
DX: R21 Rash and other nonspecific skin eruption (principal)
CPT/HCPCS: 93005; 99282; J1100

== ENCOUNTER → 2021-07-27 | Day surgery (SDC) | payer BC ==
[~2021-07-27] MED LIST changes: +BENADRYL25 M1 PO; +FAMOTIDINE 20 MG/2 ML VIAL IV ONE; +LEVOCETIRIZINE D5 MG PO; +LIDOCAINE HCL 2% LOCAL INJ 5 ML SDV VIAL INJ ONE; +METOCLOPRAMIDE HCL 10 MG/2ML VIAL ONE; +MIDAZOLAM HCL 2 MG/2 ML VIAL ONE; +NEURONTIN100 MG PO; +PREDNISONE50 MG PO; +PROPOFOL IV EMULSION 10 MG/ML 20 ML VIAL ONE
[2021-07-27 12:32] VITALS: BP 108/56
== END | disposition home or self-care (01) ==
LOC: ENDO 10:36
PROVIDERS: ATTEND Internal Medicine Gastroenterology
DX: K29.50 Unspecified chronic gastritis without bleeding (principal); K31.7 Polyp of stomach and duodenum; K20.90 Esophagitis, unspecified without bleeding; K44.9 Diaphragmatic hernia without obstruction or gangrene; K21.9 Gastro-esophageal reflux disease without esophagitis; R73.03 Prediabetes; Z91.041 Radiographic dye allergy status; Z01.812 Encounter for preprocedural laboratory examination; Z20.822 Contact with and (suspected) exposure to COVID-19; Z80.0 Family history of malignant neoplasm of digestive organs
CPT/HCPCS: 36415; 43239; 81025; C9113; J2001; J2250; J2704; J2765; U0002

== ENCOUNTER → 2021-08-22 | Outpatient (CLI) | payer BC ==
[~2021-08-22] MED LIST changes: -FAMOTIDINE 20 MG/2 ML VIAL IV ONE; -LIDOCAINE HCL 2% LOCAL INJ 5 ML SDV VIAL INJ ONE; -METOCLOPRAMIDE HCL 10 MG/2ML VIAL ONE; -MIDAZOLAM HCL 2 MG/2 ML VIAL ONE; -PROPOFOL IV EMULSION 10 MG/ML 20 ML VIAL ONE
== END ==
LOC: MRI 08:00
PROVIDERS: ATTEND Internal Medicine Gastroenterology
DX: R10.10 Upper abdominal pain, unspecified (principal)
CPT/HCPCS: 74181

== ENCOUNTER → 2022-01-05 | Outpatient (CLI) | payer BC ==
[~2022-01-05] MED LIST changes: +DIATRIZOATE MEGL/DIATRIZOA SOD 30 ML BTL PO ONE; +IOPAMIDOL 370 MG/ML 100 ML INFUS..BTL INJ ONE
== END ==
LOC: CT 14:44
PROVIDERS: ATTEND Internal Medicine Gastroenterology
DX: K62.89 Other specified diseases of anus and rectum (principal); M53.3 Sacrococcygeal disorders, not elsewhere classified
CPT/HCPCS: 74177; Q9963; Q9967

== ENCOUNTER → 2024-04-21 | Day surgery (SDC) | payer BC ==
[~2024-04-21] MED LIST changes: +ASPIRIN81 MG PO; -DIATRIZOATE MEGL/DIATRIZOA SOD 30 ML BTL PO ONE; +FENTANYL CITRATE/PF 100MCG/2 ML INJ ONE; +FISH OIL 1,0001 EAC7; -IOPAMIDOL 370 MG/ML 100 ML INFUS..BTL INJ ONE; +LIDOCAINE HCL 2% LOCAL INJ 5 ML SDV VIAL INJ ONE; +LIPITOR20 MG PO; +MAGNESIUM PO; +METOCLOPRAMIDE HCL 10 MG/2ML VIAL ONE; +NEXIUM40 MG PO; +PROPOFOL IV EMULSION 10 MG/ML 20 ML VIAL ONE; +VITAMIN D350 MCG PO; +VITAMIN E400 UNI1 PO
[2024-04-21] MEDS: LACTATED RINGER'S 1,000 ML ONE (11:56)
[2024-04-21 13:23] VITALS: TEMP 97.6
[2024-04-21 13:45] VITALS: BP 113/71; PULSE 76; RESP 18; O2SAT 99
[2024-04-24 08:13] LABS: ENDOMYSIAL ANTIBODIES, IGA Negative (Negative)
[2024-04-24 13:36] LABS: IMMUNOGLOBULIN A 165 mg/dL (87-352); TISSUE TRANSGLUTAMINASE IGA AB <2 U/mL (0-3)
== END | disposition home or self-care (01) ==
LOC: OR 11:09
PROVIDERS: ATTEND Internal Medicine Gastroenterology
DX: K29.70 Gastritis, unspecified, without bleeding (principal); K31.7 Polyp of stomach and duodenum; K25.9 Gastric ulcer, unspecified as acute or chronic, without hemorrhage or perforation; K31.89 Other diseases of stomach and duodenum; K20.90 Esophagitis, unspecified without bleeding; K21.9 Gastro-esophageal reflux disease without esophagitis; E78.5 Hyperlipidemia, unspecified; Z91.041 Radiographic dye allergy status; Z01.810 Encounter for preprocedural cardiovascular examination; Z79.82 Long term (current) use of aspirin; Z79.899 Other long term (current) drug therapy
CPT/HCPCS: 43239; 82784; 83516; 86256; 93005; J2003; J2470; J2704; J2765; J3010; J7121

== ENCOUNTER → 2024-09-12 | Day surgery (SDC) | payer BC ==
[~2024-09-12] MED LIST changes: +ESTRACE42.5 GM TOP; +GLUCAGON FOR INJ 1 MG VIAL ONE; +HYOSCYAMINE SULFATE 0.5 MG/ML INJ ONE; +LACTATED RINGER'S 1,000 ML ONE; -LIDOCAINE HCL 2% LOCAL INJ 5 ML SDV VIAL INJ ONE; -METOCLOPRAMIDE HCL 10 MG/2ML VIAL ONE; +MIDAZOLAM HCL 2 MG/2 ML VIAL ONE; +ONDANSETRON HCL INJ 2MG/ML 2ML 2 MG/ML VIAL ONE; +PROGESTERONE100 MG PO; +PROPOFOL IV EMULSION 50 ML IV ONE
[2024-09-12 14:55] VITALS: BP 116/83; PULSE 91; RESP 17; TEMP 97.4; O2SAT 98
[2024-09-12 15:13] LABS: CDIFF AG QUIK CHEK NEGATIVE (NEGATIVE); CDIFF TOX QUIK CHEK NEGATIVE (NEGATIVE)
== END | disposition home or self-care (01) ==
LOC: OR 11:03
PROVIDERS: ATTEND Internal Medicine Gastroenterology
DX: K52.9 Noninfective gastroenteritis and colitis, unspecified (principal); K63.5 Polyp of colon; K62.89 Other specified diseases of anus and rectum; K64.8 Other hemorrhoids; K29.60 Other gastritis without bleeding; K44.9 Diaphragmatic hernia without obstruction or gangrene; K21.9 Gastro-esophageal reflux disease without esophagitis; Z71.3 Dietary counseling and surveillance; M35.00 Sjogren syndrome, unspecified; Z71.89 Other specified counseling; F41.9 Anxiety disorder, unspecified; Z91.041 Radiographic dye allergy status; Z01.810 Encounter for preprocedural cardiovascular examination; Z86.16 Personal history of COVID-19; Z80.0 Family history of malignant neoplasm of digestive organs
CPT/HCPCS: 45380; 45385; 83630; 83993; 86140; 87045; 87177; 87324; 87328; 87449; 93005; J1610; J1980; J2250; J2405; J2704; J3010; J7121; 45378